=== PATIENT | male | born 1990 | race Caucasian/White ===

== ENCOUNTER 2024-12-26 06:37 | Day surgery (SDC) | payer OTHER, SELFPAY ==
[2024-12-26] VITALS (7 sets, daily range): BP systolic 101–137; BP diastolic 80–91; BMI 35.6
[2024-12-26] MEDS: TYLENOL 1000 MG PO (13:11)
[2024-12-26] MEDS: NORMOSOL-R/PLASMALYTE-A 1000 IV (13:11)
[2024-12-26] MEDS: DILAUDID 0.5 MG IV (15:45)
[2024-12-26] MEDS: ROXICODONE 5 MG PO (16:32)
== END 2024-12-26 16:52 | disposition home or self-care (01) ==
LOC: SDS 06:37
PROVIDERS: ATTENDING PHYSICIAN Surgery
DX: K42.9 Umbilical hernia without obstruction or gangrene (principal)
CPT/HCPCS: 49591; 94640